=== PATIENT | male | born 1955 | race Hispanic/Latino ===

== ENCOUNTER 2017-11-28 16:14 | Inpatient (IN) | payer OTHER ==
[2017-11-28] MEDS ORDERED: Sodium Chloride 0.9% 1,000 ML IV STA (16:43)
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
[2017-11-28 17:14] LABS: BASO % 0.1 % (0.0-2.0); HEMOGLOBIN 12.8 g/dL (12.0-18.0); LYMPH # 0.3 K/uL (1.0-4.3); LYMPH % 1.6 % (20.0-40.0); MEAN CORPUSCULAR HEMOGLOBIN 30.7 pg (27.0-31.0); MEAN CORPUSCULAR HGB CONC 33.4 g/dL (33.0-37.0); MEAN PLATELET VOLUME 8.6 fl (7.2-11.7); MONO # 0.6 K/uL (0.0-0.8); MONO % 3.5 % (0.0-10.0); NEUT # 17.2 K/uL (1.8-7.0); NEUT % 94.8 % (50.0-75.0); PLATELET COUNT 240 K/uL (130-400); RBC 4.15 Mil/uL (4.40-5.90); WHITE BLOOD COUNT 18.2 K/uL (4.8-10.8)
[2017-11-28 17:21] LABS: VENOUS BLOOD GAS BASE EXCESS 3.8 mmol/L (0.0-2.0); VENOUS BLOOD GAS PCO2 46 mmHg (40-60); VENOUS BLOOD GAS PO2 21 mm/Hg (30-55); VENOUS BLOOD PH 7.41 (7.32-7.43)
[2017-11-28 17:25] LABS: ALB/GLOB RATIO 1.3 (1.0-2.1); ALT/SGPT 265 U/L (21-72); AST/SGOT 132 U/L (17-59); BLOOD UREA NITROGEN 23 mg/dl (9-20); CALCIUM 9.6 mg/dL (8.4-10.2); GFR NON-AFRICAN AMERICAN > 60
[2017-11-28 17:26] LABS: INR 1.3; PROTHROMBIN TIME 14.5 Seconds (9.8-13.1)
[2017-11-28 17:28] LABS: PARTIAL THROMBOPLASTIN TIME 26.3 Seconds (25.6-37.1)
[2017-11-28] MEDS ORDERED: Piperacillin/Tazobact 4.5 GM in Sodium Chloride 0.9% 100 ML IVPB STA (18:00)
[2017-11-28 18:33] LABS: LIPASE 31854 U/L (23-300)
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
[2017-11-28] MEDS ORDERED: Lactated Ringer's 1,000 ML IV SCH (19:00)
[2017-11-28 19:10] LABS: ANISOCYTOSIS SLIGHT; BANDS 11 % (0-2); LARGE PLATELETS PRESENT; LYMPHOCYTE 1 % (20-50); MONOCYTE 3 % (0-10); NEUTROPHIL 85 % (42-75); PLATELET ESTIMATE NORMAL (NORMAL); TARGET CELLS SLIGHT; TOTAL CELLS COUNTED 100
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
--- NOTE | 2017-11-28 21:42 | CARD ---
APPROVED REPORT Date of service: 11/28/2017 EKG Measurement Heart [id number] <Conclusion> Sinus tachycardia Possible Left atrial enlargement Cannot rule out Inferior infarct, age undetermined Abnormal ECG
[2017-11-28] MEDS: Sodium Chloride 0.9% 1,000 ML IV SCH (21:47)
[2017-11-28] MEDS: Piperacillin/Tazobact 3.375 GM in Sodium Chloride 0.9% 100 ML IVPB SCH (21:48)
[2017-11-28] MEDS ORDERED: Piperacillin/Tazobact 3.375 GM in Sodium Chloride 0.9% 100 ML IVPB SCH (22:00)
[2017-11-29] MEDS: Sodium Chloride 0.9% 1,000 ML IV SCH (00:30)
[2017-11-29] MEDS: Piperacillin/Tazobact 3.375 GM in Sodium Chloride 0.9% 100 ML IVPB SCH ×4 (04:51→21:46)
[2017-11-29 05:49] LABS: BASO % 0.4 % (0.0-2.0); EOS # 0.2 K/uL (0.0-0.7); EOS % 1.7 % (0.0-4.0); HEMOGLOBIN 11.2 g/dL (12.0-18.0); LYMPH # 0.7 K/uL (1.0-4.3); LYMPH % 5.9 % (20.0-40.0); MEAN CELL VOLUME 91.4 fl (80.0-94.0); MEAN CORPUSCULAR HEMOGLOBIN 30.7 pg (27.0-31.0); MEAN CORPUSCULAR HGB CONC 33.6 g/dL (33.0-37.0); MEAN PLATELET VOLUME 8.4 fl (7.2-11.7); MONO # 0.7 K/uL (0.0-0.8); MONO % 5.8 % (0.0-10.0); NEUT # 10.2 K/uL (1.8-7.0); NEUT % 86.2 % (50.0-75.0); RBC 3.63 Mil/uL (4.40-5.90); RED CELL DISTRIBUTION WIDTH 14.8 % (11.5-14.5); WHITE BLOOD COUNT 11.8 K/uL (4.8-10.8)
[2017-11-29 06:25] LABS: ALB/GLOB RATIO 1.1 (1.0-2.1); ALBUMIN 3.2 g/dL (3.5-5.0); ALT/SGPT 193 U/L (21-72); AST/SGOT 74 U/L (17-59); BLOOD UREA NITROGEN 20 mg/dl (9-20); CALCIUM 9.1 mg/dL (8.4-10.2); GFR NON-AFRICAN AMERICAN > 60
[2017-11-29 06:30] LABS: LIPASE 6562 U/L (23-300)
[2017-11-29] MEDS ORDERED: Gadodiamide 287 MG/ML VIAL (15ML) IV ONE (08:11)
[2017-11-29] MEDS ORDERED: Sodium Chloride 0.9% 50 ML IV ONE (08:11)
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
[2017-11-29] MEDS: Enoxaparin 40 mg Syringe SC SCH (10:00)
--- NOTE | 2017-11-29 11:20 | MRI ---
Date of service: 11/29/17 MRCP Indication: Gallbladder sludge, pancreatitis Technique: Multiplanar, multisequence MR images of the abdomen were obtained, including heavily T2 weighted MRCP images of the biliary system. Rotating maximum intensity projection images of the biliary system were generated. A total of 1208 images were submitted for review. Comparison: Gallbladder ultrasound performed 11/28/17 Findings: Examination limited by a motion and patient limitations in following instruction. The lung bases reveal moderate-sized left pleural effusion and associated compressive consolidation. Trace right pleural effusion. Hepatomegaly. Mild hepatic steatosis. Mild gallbladder wall thickening/pericholecystic edema. No gallstones identified. There is no intrahepatic biliary ductal dilatation. The common bile duct appears within normal limits of caliber. The distal common bile duct is not well visualized however appears to taper distally on axial views ; distal calculus or sludge cannot be entirely excluded. The pancreatic duct appears within normal limits of caliber. Suspect mild pancreatic edema. No discrete pancreatic abnormality appreciated. The adrenal glands, kidneys, spleen, and pancreas appear unremarkable. No bulky abdominal lymphadenopathy is seen. No acute osseous abnormality is detected. Impression: Moderate left-sided pleural effusion and associated compressive consolidation. Trace right pleural effusion. Mild gallbladder wall thickening/pericholecystic edema. Small gallstones near the neck. The common bile duct appears within normal limits of caliber. The distal common bile duct is not well visualized however appears to taper distally on axial views ; distal calculus or sludge cannot be entirely excluded. Mild gallbladder wall thickening/pericholecystic edema. Mild hepatic steatosis. Hepatomegaly.
--- NOTE | 2017-11-29 11:27 | US ---
Date of service: 11/28/2017 HISTORY: Epigastric pain, fever COMPARISON: No prior TECHNIQUE: Sonographic evaluation of the right upper quadrant of the abdomen. FINDINGS: LIVER: Measures 18.5 cm in length. Nodular hepatic contour. No focal hepatic mass identified. The main portal vein appears patent with normal directional flow. GALLBLADDER: Gallbladder sludge. No gallstones. No gallbladder wall thickening or pericholecystic edema. Negative sonographic Lozano's sign as assessed by the safety admin assistant. COMMON BILE DUCT: Measures 6 mm. PANCREAS: Not well-visualized. RIGHT KIDNEY: Measures 12.3 x 4.2 x 5.4 cm. No obstructing calculus or hydronephrosis identified. AORTA: Limited visualization appears grossly unremarkable. IVC: Limited visualization appears grossly unremarkable. OTHER FINDINGS: None . IMPRESSION: Gallbladder sludge. Hepatomegaly. Mildly nodular hepatic contour. Correlate clinically for cirrhosis. Preliminary impression was provided by virtual radiologic.
--- NOTE | 2017-11-29 14:11 | CP.PCM.PN ---
Subjective - Date & Time of Evaluation Date of Evaluation: 11/29/17 Time of Evaluation: 08:00 - Subjective Subjective: Surgery: Dr. Valencia Pt seen and examined. No acute overnight events. States he feels a lot better and abdominal pain has improved. Pt denies any nausea/vomiting, fevers/chills. Objective - Vital Signs/Intake and Output Vital Signs (last 24 hours): Temp Pulse Resp BP Pulse Ox 98.4 F 86 20 151/80 H 97 11/29/17 11:58 11/29/17 11:58 11/29/17 11:58 11/29/17 11:58 11/29/17 11:58 - Medications Medications: Current Medications Enoxaparin Sodium (Lovenox) 40 mg SC DAILY NASIM PRN Reason: Protocol Last Admin: 11/29/17 10:00 Dose: 40 mg Hydromorphone HCl (Dilaudid) 0.5 mg IVP Q4H PRN PRN Reason: Pain, moderate (4-7) Last Admin: 11/28/17 21:45 Dose: 0.5 mg Sodium Chloride (Sodium Chloride 0.9%) 1,000 mls @ 200 mls/hr IV .Q5H NASIM Last Admin: 11/29/17 00:30 Dose: 200 mls/hr Piperacillin Sod/Tazobactam (Sod 3.375 gm/ Sodium Chloride) 100 mls @ 100 mls/ hr IVPB Q6 NASIM PRN Reason: Protocol Last Admin: 11/29/17 09:59 Dose: 100 mls/hr Ondansetron HCl (Zofran Inj) 4 mg IVP Q6 PRN PRN Reason: Nausea/Vomiting Sennosides (Senokot Tab) 17.2 mg PO HS [facility] Last Admin: 11/28/17 21:46 Dose: 17.2 mg - Labs Labs: 11/29/17 04:30 11/29/17 04:30 PT 14.5 Seconds (9.8-13.1) H 11/28/17 17:00 INR 1.3 11/28/17 17:00 APTT 26.3 Seconds (25.6-37.1) 11/28/17 17:00 - Constitutional Appears: Well, No Acute Distress - Head Exam Head Exam: ATRAUMATIC, NORMOCEPHALIC - Eye Exam Eye Exam: Normal appearance - ENT Exam ENT Exam: Mucous Membranes Moist - Respiratory Exam Respiratory Exam: NORMAL BREATHING PATTERN - Cardiovascular Exam Cardiovascular Exam: RRR - GI/Abdominal Exam GI & Abdominal Exam: Soft. absent: Distended, Guarding, Tenderness - Neurological Exam Neurological Exam: Alert, Awake, Oriented x3 - Skin Skin Exam: Dry, Intact, Warm Assessment and Plan - Assessment and Plan (Free Text) Assessment: 62M with gallstone pancreatitis Plan: - f/u CT/abdomen pelvis - MRCP negative - keep NPO with IVF hydration - will advance diet in AM - plan for lap roque before DC once pancreatitis improved - d/w Dr. Erik Cisse
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
[2017-11-29] MEDS ORDERED: Iohexol 300 100 ML IJ ONE (22:36)
[2017-11-30] MEDS: Piperacillin/Tazobact 3.375 GM in Sodium Chloride 0.9% 100 ML IVPB SCH ×4 (03:50→21:39)
[2017-11-30 06:03] LABS: BASO # 0.1 K/uL (0.0-0.2); BASO % 0.4 % (0.0-2.0); EOS # 0.2 K/uL (0.0-0.7); EOS % 1.4 % (0.0-4.0); HEMOGLOBIN 11.2 g/dL (12.0-18.0); LYMPH # 1.3 K/uL (1.0-4.3); LYMPH % 9.1 % (20.0-40.0); MEAN CORPUSCULAR HEMOGLOBIN 30.5 pg (27.0-31.0); MEAN CORPUSCULAR HGB CONC 33.5 g/dL (33.0-37.0); MEAN PLATELET VOLUME 8.3 fl (7.2-11.7); MONO # 1.4 K/uL (0.0-0.8); NEUT # 11.2 K/uL (1.8-7.0); NEUT % 79.1 % (50.0-75.0); NRBC % 0.1 % (0.0-0.0); RBC 3.67 Mil/uL (4.40-5.90); RED CELL DISTRIBUTION WIDTH 14.9 % (11.5-14.5); WHITE BLOOD COUNT 14.2 K/uL (4.8-10.8)
[2017-11-30 06:21] LABS: ALBUMIN 3.1 g/dL (3.5-5.0); ALT/SGPT 118 U/L (21-72); AST/SGOT 32 U/L (17-59); BLOOD UREA NITROGEN 17 mg/dl (9-20); CALCIUM 8.9 mg/dL (8.4-10.2); GFR NON-AFRICAN AMERICAN > 60
--- NOTE | 2017-11-30 07:52 | CP.PCM.PN ---
Subjective - Date & Time of Evaluation Date of Evaluation: 11/30/17 Time of Evaluation: 07:20 - Subjective Subjective: General Surgery Note for Dr. Valencia Patient seen and examined. No acute overnight events. He reports no abdominal pain. Denies any nausea/vomiting, fevers/chills. Patient wishes to go home and [place]. Objective - Vital Signs/Intake and Output Vital Signs (last 24 hours): Temp Pulse Resp BP Pulse Ox 99.3 F 86 19 161/83 H 95 11/30/17 07:36 11/30/17 07:36 11/30/17 07:36 11/30/17 07:36 11/30/17 07:36 - Medications Medications: Current Medications Enoxaparin Sodium (Lovenox) 40 mg SC DAILY NASIM PRN Reason: Protocol Last Admin: 11/29/17 10:00 Dose: 40 mg Hydromorphone HCl (Dilaudid) 0.5 mg IVP Q4H PRN PRN Reason: Pain, moderate (4-7) Last Admin: 11/28/17 21:45 Dose: 0.5 mg Sodium Chloride (Sodium Chloride 0.9%) 1,000 mls @ 200 mls/hr IV .Q5H NASIM Last Admin: 11/29/17 00:30 Dose: 200 mls/hr Piperacillin Sod/Tazobactam (Sod 3.375 gm/ Sodium Chloride) 100 mls @ 100 mls/ hr IVPB Q6 [facility]IM PRN Reason: Protocol Last Admin: 11/30/17 03:50 Dose: 100 mls/hr Ondansetron HCl (Zofran Inj) 4 mg IVP Q6 PRN PRN Reason: Nausea/Vomiting Sennosides (Senokot Tab) 17.2 mg PO HS NASIM Last Admin: 11/29/17 21:45 Dose: 17.2 mg - Labs Labs: 11/30/17 05:30 11/30/17 05:30 PT 14.5 Seconds (9.8-13.1) H 11/28/17 17:00 INR 1.3 11/28/17 17:00 APTT 26.3 Seconds (25.6-37.1) 11/28/17 17:00 - Additional Findings Additional findings: - Constitutional Appears: Well, No Acute Distress - Head Exam Head Exam: ATRAUMATIC, NORMOCEPHALIC - Eye Exam Eye Exam: Normal appearance - ENT Exam ENT Exam: Mucous Membranes Moist - Respiratory Exam Respiratory Exam: NORMAL BREATHING PATTERN - Cardiovascular Exam Cardiovascular Exam: RRR - GI/Abdominal Exam GI & Abdominal Exam: Soft. absent: Distended, Guarding, Tenderness - Neurological Exam Neurological Exam: Alert, Awake, Oriented x3 - Skin Skin Exam: Dry, Intact, Warm Assessment and Plan - Assessment and Plan (Free Text) Assessment: 62M with gallstone pancreatitis Plan: - CT/abdomen pelvis shows fluid near tail of pancreas - Patient is asymptomatic - CLD, ADAT - Contineu IV abx - IVF - Further recommendations as per Dr. Valencia
[2017-11-30] MEDS: Sodium Chloride 0.9% 1,000 ML IV SCH ×2 (08:00→18:36)
--- NOTE | 2017-11-30 09:56 | CP.PCM.PN ---
Subjective - Date & Time of Evaluation Date of Evaluation: 11/30/17 Time of Evaluation: 09:55 - Subjective Subjective: no pain Objective - Vital Signs/Intake and Output Vital Signs (last 24 hours): Temp Pulse Resp BP Pulse Ox 99.3 F 86 19 161/83 H 95 11/30/17 07:36 11/30/17 07:36 11/30/17 07:36 11/30/17 07:36 11/30/17 07:36 Intake and Output: 11/30/17 11/30/17 06:59 18:59 Intake Total 2400 Balance 2400 - Medications Medications: Current Medications Enoxaparin Sodium (Lovenox) 40 mg SC DAILY NASIM PRN Reason: Protocol Last Admin: 11/29/17 10:00 Dose: 40 mg Hydromorphone HCl (Dilaudid) 0.5 mg IVP Q4H PRN PRN Reason: Pain, moderate (4-7) Last Admin: 11/28/17 21:45 Dose: 0.5 mg Piperacillin Sod/Tazobactam (Sod 3.375 gm/ Sodium Chloride) 100 mls @ 100 mls/ hr IVPB Q6 NASIM PRN Reason: Protocol Last Admin: 11/30/17 03:50 Dose: 100 mls/hr Sodium Chloride (Sodium Chloride 0.9%) 1,000 mls @ 125 mls/hr IV .Q8H [facility] Stop: 12/02/17 08:14 Ondansetron HCl (Zofran Inj) 4 mg IVP Q6 PRN PRN Reason: Nausea/Vomiting Sennosides (Senokot Tab) 17.2 mg PO HS [facility] Last Admin: 11/29/17 21:45 Dose: 17.2 mg - Labs Labs: 11/30/17 05:30 11/30/17 05:30 PT 14.5 Seconds (9.8-13.1) H 11/28/17 17:00 INR 1.3 11/28/17 17:00 APTT 26.3 Seconds (25.6-37.1) 11/28/17 17:00 - Neck Exam Neck Exam: Normal Inspection - Respiratory Exam Respiratory Exam: Clear to Ausculation Bilateral, NORMAL BREATHING PATTERN - Cardiovascular Exam Cardiovascular Exam: REGULAR RHYTHM - GI/Abdominal Exam GI & Abdominal Exam: Soft, Normal Bowel Sounds Assessment and Plan - Assessment and Plan (Free Text) Assessment: 62 yo male with gallstone pancreatitis doing well no pain advance diet surgical input
[2017-11-30] MEDS: Enoxaparin 40 mg Syringe SC SCH (10:13)
--- NOTE | 2017-11-30 10:49 | CT ---
Date of service: 11/29/2017 PROCEDURE: CT Abdomen and Pelvis with contrast HISTORY: pancreatitis COMPARISON: MRCP with abdomen MRI with and without contrast. TECHNIQUE: Following the intravenous administration of iodinated contrast material, a CT examination of the abdomen and pelvis performed from the domes of the diaphragms to the symphysis pubis with reformatted datasets provided in axial, sagittal and coronal planes. Oral contrast was not administered as per referring physician request. Contrast dose: Omnipaque 300, 95 cc Radiation dose: Total exam DLP = 866.51 mGy-cm. This CT exam was performed using one or more of the following dose reduction techniques: Automated exposure control, adjustment of the mA and/or kV according to patient size, and/or use of iterative reconstruction technique. FINDINGS: LOWER THORAX: Left pleural effusion again evident not significantly changed in volume. Compression atelectasis affects the left lower lobe. Trace right pleural effusion present. LIVER: Mild hyperdensity seen throughout liver compatible hepatic steatosis. No discrete hepatic mass or significant intrahepatic biliary dilatation appreciable. Punctate calcification at the upper portion of the silver hepatis of uncertain origin. GALLBLADDER AND BILE DUCTS: There is likely sympathetic thickening of the gallbladder wall. Clinically correlate for potential cholecystitis. Mild cholelithiasis is identified in the dependent gallbladder neck. PANCREAS: Pancreas appears homogeneous overall density and is not appear enlarged in size however there is moderate peripancreatic reactive change extending to the left para renal space and left pericolic gutter pattern with clinical history pancreatitis. No radiodense choledocholithiasis appreciated CBD appears normal caliber grossly. No pseudocyst formation is identified or definitive CT sign of pancreatic necrosis. SPLEEN: Unremarkable. ADRENALS: Unremarkable. No mass. KIDNEYS AND URETERS: Nonobstructing punctate intrarenal calculus lower pole. No hydronephrosis. No solid mass. VASCULATURE: Right kidney. Unremarkable. No aortic aneurysm. BOWEL: Evaluation of the gastrointestinal tract is limited due the lack of oral contrast administration. No bowel obstruction, pericolic or perienteric reaction identified.Trace sigmoid diverticulum, nonacute. APPENDIX: Normal appendix. PERITONEUM: Unremarkable. No free fluid. No free air. LYMPH NODES: Unremarkable. No enlarged lymph nodes. BLADDER: Unremarkable. REPRODUCTIVE: Mild prostate enlargement. BONES: No acute fracture. OTHER FINDINGS: None. IMPRESSION: 1. Mild hepatic steatosis suggested. No dilatation of the biliary tree appreciable. 2. Pain status pattern without CT sign of necrosis or pseudocyst formation. Limited left para renal and pericolic gutter fluid. Sympathetic thickening the gallbladder is appreciated. 3. Cholelithiasis. 4. Additional findings as listed above. Concordant preliminary report from [facility], 11/30/2017.
[2017-11-30 13:20] VITALS: BMI 27.6
[2017-12-01 01:33] VITALS: RESP 19
[2017-12-01] MEDS: Sodium Chloride 0.9% 1,000 ML IV SCH (01:35)
[2017-12-01] MEDS: Piperacillin/Tazobact 3.375 GM in Sodium Chloride 0.9% 100 ML IVPB SCH ×2 (05:00→09:55)
[2017-12-01 06:58] LABS: BASO # 0.1 K/uL (0.0-0.2); BASO % 0.6 % (0.0-2.0); EOS # 0.3 K/uL (0.0-0.7); EOS % 2.1 % (0.0-4.0); HEMOGLOBIN 12.5 g/dL (12.0-18.0); LYMPH % 14.3 % (20.0-40.0); MEAN CELL VOLUME 91.3 fl (80.0-94.0); MEAN CORPUSCULAR HEMOGLOBIN 31.1 pg (27.0-31.0); MEAN PLATELET VOLUME 8.5 fl (7.2-11.7); MONO # 1.8 K/uL (0.0-0.8); MONO % 12.7 % (0.0-10.0); NEUT % 70.3 % (50.0-75.0); RBC 4.02 Mil/uL (4.40-5.90); RED CELL DISTRIBUTION WIDTH 15.1 % (11.5-14.5); WHITE BLOOD COUNT 14.2 K/uL (4.8-10.8)
[2017-12-01 07:13] LABS: ALBUMIN 3.3 g/dL (3.5-5.0); ALT/SGPT 83 U/L (21-72); AST/SGOT 33 U/L (17-59); BLOOD UREA NITROGEN 9 mg/dl (9-20); CALCIUM 9.1 mg/dL (8.4-10.2); GFR NON-AFRICAN AMERICAN > 60
[2017-12-01 08:16] VITALS: TEMP 98.1; O2SAT 97
[2017-12-01] MEDS: Enoxaparin 40 mg Syringe SC SCH (09:57)
[2017-12-01 11:54] VITALS: BP 171/80; PULSE 84
--- NOTE | 2017-12-01 12:18 | CP.PCM.PN ---
Subjective - Date & Time of Evaluation Date of Evaluation: 12/01/17 Time of Evaluation: 12:15 - Subjective Subjective: General Surgery Note for Dr. Valencia Patient seen and examined. No acute overnight events. He reports no abdominal pain. Denies any nausea/vomiting, fevers/chills. Patient wishes to go home and have elective lap cholecystectomy in [facility]. Patient and daughter present at bedside decided to sign out against medical advice. Risks/benefit of staying for procedure and inpatient treatment were discussed with patient and daughter including but not limited to sepsis, septic shock, necrotizing pancreatitis, cholangitis, recurrent pancreatitis, cholecystitis, . Patient and daughter verbalized understanding and agreement to sign out AMA despite hearing/ understanding the risk/benefits of staying in the hospital. the nurse was present for entire discussion. Objective - Vital Signs/Intake and Output Vital Signs (last 24 hours): Temp Pulse Resp BP Pulse Ox 98.1 F 84 19 171/80 H 97 12/01/17 08:15 12/01/17 11:53 12/01/17 08:15 12/01/17 11:53 12/01/17 08:15 Intake and Output: 12/01/17 12/01/17 06:59 18:59 Intake Total 2850 Balance 2850 - Medications Medications: Current Medications Enoxaparin Sodium (Lovenox) 40 mg SC DAILY [facility]IM PRN Reason: Protocol Last Admin: 12/01/17 09:57 Dose: 40 mg Hydromorphone HCl (Dilaudid) 0.5 mg IVP Q4H PRN PRN Reason: Pain, moderate (4-7) Last Admin: 12/01/17 01:33 Dose: 0.5 mg Piperacillin Sod/Tazobactam (Sod 3.375 gm/ Sodium Chloride) 100 mls @ 100 mls/ hr IVPB Q6 [facility] PRN Reason: Protocol Last Admin: 12/01/17 09:55 Dose: 100 mls/hr Sodium Chloride (Sodium Chloride 0.9%) 1,000 mls @ 125 mls/hr IV .Q8H [facility] Stop: 12/02/17 08:14 Last Admin: 12/01/17 01:35 Dose: 125 mls/hr Ondansetron HCl (Zofran Inj) 4 mg IVP Q6 PRN PRN Reason: Nausea/Vomiting Sennosides (Senokot Tab) 17.2 mg PO HS NASIM Last Admin: 11/30/17 21:43 Dose: 17.2 mg - Labs Labs: 12/01/17 05:25 12/01/17 05:25 PT 14.5 Seconds (9.8-13.1) H 11/28/17 17:00 INR 1.3 11/28/17 17:00 APTT 26.3 Seconds (25.6-37.1) 11/28/17 17:00 - Additional Findings Additional findings: - Constitutional Appears: Well, No Acute Distress - Head Exam Head Exam: ATRAUMATIC, NORMOCEPHALIC - Eye Exam Eye Exam: Normal appearance - ENT Exam ENT Exam: Mucous Membranes Moist - Respiratory Exam Respiratory Exam: NORMAL BREATHING PATTERN - Cardiovascular Exam Cardiovascular Exam: RRR - GI/Abdominal Exam GI & Abdominal Exam: Soft. absent: Distended, Guarding, Tenderness - Neurological Exam Neurological Exam: Alert, Awake, Oriented x3 - Skin Skin Exam: Dry, Intact, Warm Assessment and Plan - Assessment and Plan (Free Text) Assessment: 62M with gallstone pancreatitis Plan: - Patient is asymptomatic - CLD, ADAT - Contineu IV abx - IVF - Recommended laparoscopic cholecystectomy as per current guidelines before discharge but patient refusing until he goes home to [facility] - Further recommendations as per Dr. Erik Morris PGY2
== END 2017-12-01 13:17 | disposition left against medical advice (07) | DRG 440 ==
LOC: H.ER 16:14 → H.ERHOLD 18:52 → H.TEL 20:41 → H.MEDSURG1 11-29 18:35
PROVIDERS: ADMIT Surgery; ATTEND Surgery
DX: K85.10 Biliary acute pancreatitis without necrosis or infection (principal); E11.9 Type 2 diabetes mellitus without complications; R16.0 Hepatomegaly, not elsewhere classified